=== PATIENT | male | born 1980 | race Caucasian/White ===

== ENCOUNTER 2016-05-04 13:13 | Emergency (ER) | payer BC ==
[2016-05-04] MEDS ORDERED: ACETAMINOPHEN 325 MG TABLET PO STA (14:44)
[2016-05-04] MEDS ORDERED: IBUPROFEN 400 MG TABLET PO STA (14:44)
[2016-05-04] MEDS ORDERED: IBUPROFEN 400 MG TABLET PO ONE (14:55)
[2016-05-04] MEDS ORDERED: ACETAMINOPHEN 325 MG TABLET PO ONE (14:55)
== END 2016-05-04 16:28 | disposition home or self-care (01) ==
DX: S20.212A Contusion of left front wall of thorax, initial encounter (principal); V57.5XXA Driver of pick-up truck or van injured in collision with fixed or stationary object in traffic accident, initial encounter; Y92.410 Unspecified street and highway as the place of occurrence of the external cause; F17.200 Nicotine dependence, unspecified, uncomplicated
CPT/HCPCS: 71020; 93005; 93010; 99283; 99284; A9270